=== PATIENT | female | born 1970 | race Caucasian/White ===

== ENCOUNTER → 2019-05-16 12:45 | Outpatient (CLI) | payer OTHER, SELFPAY ==
--- NOTE | 2019-05-16 12:49 | DI.RAD.S_ITS ---
PROCEDURE: XR FOOT RT MIN 3V INDICATIONS: pain to top of foot and big toe, lac to toe, r/o open fx TECHNIQUE: 3 views of the foot were acquired. COMPARISON: [facility], CR, XR TIBIA FIBULA RIGHT, 01/29/2019, 17:12. FINDINGS: Bones: No fractures or dislocations. No suspicious bony lesions. Soft tissues: No tibiotalar joint effusion. Achilles tendon appears normal. Soft tissue laceration is noted along the distal aspect of the first digit. IMPRESSION: Soft tissue laceration of the first digit. No visualized acute fracture or dislocation. However, if clinical concern and/or pain persist, short interval imaging followup in 7-10 days is recommended, as occult injury cannot be definitively excluded. Dictated by: Tiffany Lim M.D. on 05/16/2019 at 13:02 Approved by: Tiffany Lim M.D. on 05/16/2019 at 13:03
== END ==
PROVIDERS: Visit Provider Physician Assistant
DX: M79.671 Pain in right foot (principal); S91.111A Laceration without foreign body of right great toe without damage to nail, initial encounter; X58.XXXA Exposure to other specified factors, initial encounter
CPT/HCPCS: 73630

== ENCOUNTER → 2022-07-06 10:15 | Outpatient (CLI) | payer OTHER, SELFPAY ==
[2022-07-06 11:33] LABS: COVID19 -Nasal RAPID Negative (Negative)
== END ==
PROVIDERS: Visit Provider Physician Assistant Medical
DX: J02.9 Acute pharyngitis, unspecified (principal)
CPT/HCPCS: 87070; 87635